=== PATIENT | female | born 1970 | race Asian ===

== ENCOUNTER 2018-11-20 09:44 | Inpatient (IN) | payer OTHER ==
[~2018-11-20] VITALS: Ht 160 cm; Wt 49.9 kg
[2018-11-20 09:57] VITALS: Ht 160 cm; Wt 49.9 kg
[2018-11-20 10:52] LABS: CALCIUM 8.9 mg/dL (8.5-10.1); CARBON DIOXIDE 32.2 mmol/L (21-32); CHLORIDE SERUM 100 mmol/L (98-107); CREATININE SERUM 0.7 mg/dL (0.6-1.0); GFR1 > 60 mL/min; GLUCOSE SERUM 93 mg/dL (74-106); POTASSIUM SERUM 3.4 mmol/L (3.5-5.1); SODIUM SERUM 137 mmol/L (136-145)
[2018-11-20 10:59] LABS: ALBUMIN 4.1 g/dL (3.4-5.0); ALKALINE PHOSPHATASE 71 U/L (46-116); ALT/SGPT 13 U/L (14-59); AST/SGOT 11 U/L (15-37); BILIRUBIN TOTAL 0.48 mg/dL (0.20-1.00); TOTAL PROTEIN, SERUM 7.8 g/dL (6.4-8.2)
[2018-11-20 11:03] LABS: BASOPHIL % 0.3 % (0-2); PLATELET COUNT 270 x10^3mcL (130-400); RED CELL DISTRIBUTION WIDTH 13.5 % (11.5-14.5)
[2018-11-20] MEDS ORDERED: D3-50001 TAB PO (12:25)
[2018-11-20 13:05] VITALS: BP 110/55
[2018-11-20 17:04] VITALS: BP 94/44
[2018-11-20 17:28] VITALS: BP 103/43
[2018-11-20] MEDS ORDERED: LOV60I SC (18:10)
[2018-11-20] MEDS ORDERED: NIT0.4 SL (18:10)
[2018-11-20 21:22] VITALS: BP 101/52
[2018-11-21] VITALS (7 sets, daily range): BP systolic 92–109; BP diastolic 44–58
[2018-11-21 06:16] LABS: BASOPHIL % 0.4 % (0-2); PLATELET COUNT 269 x10^3mcL (130-400); RED CELL DISTRIBUTION WIDTH 13.6 % (11.5-14.5)
[2018-11-21 06:53] LABS: ALBUMIN 3.4 g/dL (3.4-5.0); ALKALINE PHOSPHATASE 60 U/L (46-116); ALT/SGPT 15 U/L (14-59); AST/SGOT 11 U/L (15-37); BILIRUBIN TOTAL 0.36 mg/dL (0.20-1.00); CALCIUM 8.4 mg/dL (8.5-10.1); CARBON DIOXIDE 26.5 mmol/L (21-32); CHLORIDE SERUM 105 mmol/L (98-107); CREATININE SERUM 0.5 mg/dL (0.6-1.0); GFR1 > 60 mL/min; GLUCOSE SERUM 89 mg/dL (74-106); MAGNESIUM 1.9 mg/dL (1.8-2.4); SODIUM SERUM 139 mmol/L (136-145); TOTAL PROTEIN, SERUM 6.6 g/dL (6.4-8.2)
== END 2018-11-21 18:54 | disposition short-term general hospital (02) | DRG 190 ==
LOC: ED 09:44 → DU 11:46
PROVIDERS: Emergency Medicine; ADMIT Internal Medicine Pulmonary Disease
DX: I21.4 Non-ST elevation (NSTEMI) myocardial infarction (principal); Z79.82 Long term (current) use of aspirin
CPT/HCPCS: J1650; Q0092